=== PATIENT | male | born 1955 | race Caucasian/White ===

== ENCOUNTER 2019-01-24 06:31 | Day surgery (SDC) | payer MEDICARE, BC ==
[2019-01-24] MEDS ORDERED: Bupivacaine 0.5% 50 ML MDV ONE (06:42)
[2019-01-24] MEDS ORDERED: Lidocaine 1% with EPINEPHrine 1:100,000 50 ML MDV ONE (06:42)
[2019-01-24] MEDS ORDERED: Sodium Chloride 0.9% 1,000 ML IV SCH (07:00)
[2019-01-24] MEDS ORDERED: metroNIDAZOLE/Normal Saline 500 MG in Premix Bag 1 BAG IV ONE (07:30)
[2019-01-24] MEDS ORDERED: ceFAZolin 2 GM in Sodium Chloride 0.9% 50 ML IV ONE (07:30)
[2019-01-24] MEDS ORDERED: methylPREDNISolone Sodium Succinate 40 MG/1 ML SDV IVPUSH ONE (07:30)
[2019-01-24] MEDS ORDERED: fentaNYL 250 MCG/5 ML SDV ONE ×2 (07:37→08:22)
[2019-01-24] MEDS ORDERED: Neostigmine Methylsulfate 1 MG/ML 5 ML Syringe ONE (07:38)
[2019-01-24] MEDS ORDERED: Propofol 200 MG/20 ML SDV ONE (07:38)
[2019-01-24] MEDS ORDERED: Glycopyrrolate 0.2 MG/ML 5 ML MDV ONE (07:38)
[2019-01-24] MEDS ORDERED: Rocuronium 50 MG/5 ML Vial ONE (07:38)
[2019-01-24] MEDS ORDERED: Succinylcholine 200 MG/10 ML MDV ONE (07:38)
[2019-01-24] MEDS ORDERED: Dexamethasone 4 MG/ML SDV ONE (07:38)
[2019-01-24] MEDS ORDERED: Ondansetron 4 MG/2 ML SDV ONE (07:38)
[2019-01-24] MEDS ORDERED: Lactated Ringers 1,000 ML ONE (08:26)
[2019-01-24] MEDS ORDERED: Meperidine PF 25 MG/ML Syringe IM PRN (09:01)
[2019-01-24] MEDS ORDERED: oxyCODONE 5 MG Tab PO ONE (10:12)
[2019-01-24 10:31] VITALS: BP 124/83; PULSE 102
--- NOTE | 2019-01-24 11:16 | OR ---
DATE OF PROCEDURE: 01/24/2019 SURGEON: Daron Art MD PROCEDURE: Transversus abdominis plane block, bilaterally. COMPLICATIONS: None. DENTAL SURGEON: None. ANESTHESIA: MAC. INDICATIONS: A 63-year-old male is requiring postoperative pain management. The patient did have a previous concern of scalene blocks, which we discussed, as this was a separate type of block, and he was okay with proceeding after we talked about infection, bleeding, injury to abdominal structures, and other risks not listed here. PROCEDURE IN DETAIL: The patient was placed in supine position. The left side was addressed first. This was injected under direct visualization. The 80% of the solution was injected. The other side was then performed in a same manner, same fashion, same technique in the same sequence. Of note, the needle did not move past the peritoneum into the abdomen at any time. Daron Art MD /[id number]
--- NOTE | 2019-01-24 11:21 | OR ---
DATE OF PROCEDURE: 01/24/2019 SURGEON: Daron Art MD PROCEDURE: Laparoscopic total extraperitoneal hernia repair. COMPLICATIONS: None. RETAIL AREA MANAGER: None. ANESTHESIA: General. RISKS: Risks, benefits, alternatives, and limitations including, but not limited to infection, bleeding, injury to vas deferens, testicular loss, chronic pain, requirement for reoperation, other risks not listed here were explained to the patient, who wished to proceed. PROCEDURE IN DETAIL: The patient was placed in a supine position. An infraumbilical incision was made approximately 1 cm in size. This was carried down with electrocautery to the linea alba. Slightly to the left of this, the fascia was opened and a preperitoneal space was created with a Pean. The balloon was then introduced and subsequently insufflated and held for 1 minute. The balloon was then removed, carbon dioxide was introduced, and the potential space was noted. No abnormal bleeding was noted. The dissection commenced in the lateral to medial approach. The hernia itself was 5 cm to the left of the inguinal canal. This was then dissected and further mobilized. The peritoneum was deflected. This created a landing space, the mesh was introduced. Of note, two 5 mm ports were introduced during this process using direct visualization. The mesh was introduced and placed directly and centered over the defect. This was unfolded. The abdomen was inspected for abnormality, and none was noted. An additional 5 mm port was introduced during this procedure. The air was then removed as the mesh was held into place. The fascia was then closed with #1 Vicryl. Subcutaneous tissue was closed with 3-0 Vicryl. The skin was closed with 4-0 Vicryl. Dermabond was applied. Of note, the patient was also consented for a possible biopsy of left inguinal node due to its size. The it field technician inspected the entire left groin and left abdomen. There were no enlarged lymph nodes at this time and most likely this was a reactive lymph node, as there was no target to biopsy, therefore, no biopsy was performed. Daron Art MD /[id number]
== END 2019-01-24 11:10 | disposition home or self-care (01) ==
LOC: JP.SDS 06:31
PROVIDERS: ATTEND Surgery
DX: K40.90 Unilateral inguinal hernia, without obstruction or gangrene, not specified as recurrent (principal); G89.18 Other acute postprocedural pain; J45.30 Mild persistent asthma, uncomplicated; J44.9 Chronic obstructive pulmonary disease, unspecified; I10 Essential (primary) hypertension; E03.9 Hypothyroidism, unspecified; E11.9 Type 2 diabetes mellitus without complications; M19.019 Primary osteoarthritis, unspecified shoulder; Z79.899 Other long term (current) drug therapy; Z79.84 Long term (current) use of oral hypoglycemic drugs; Z79.52 Long term (current) use of systemic steroids
CPT/HCPCS: 49650; 64488; 76998; A9270; C1781; J0171; J0690; J1100; J2405; J2704; J2710; J2795; J2920; J3010; J3490; J7030; J7050; J7120; J0330

== ENCOUNTER 2019-02-07 07:06 | Day surgery (SDC) | payer MEDICARE, BC ==
[2019-02-07] MEDS ORDERED: Bupivacaine 0.5% 50 ML MDV ONE (07:08)
[2019-02-07] MEDS ORDERED: Lidocaine 1% with EPINEPHrine 1:100,000 50 ML MDV ONE (07:08)
[2019-02-07] MEDS ORDERED: Propofol 200 MG/20 ML SDV ONE ×2 (08:13→08:54)
[2019-02-07] MEDS ORDERED: Midazolam 1 MG/ML 2 ML SDV ONE (08:13)
[2019-02-07] MEDS ORDERED: fentaNYL 100 MCG/2 ML SDV ONE (08:13)
[2019-02-07] MEDS ORDERED: Sodium Chloride 0.9% 1,000 ML IV SCH (08:15)
[2019-02-07 10:06] VITALS: BP 105/70; PULSE 63
--- NOTE | 2019-02-07 12:45 | OR ---
DATE OF PROCEDURE: 02/07/2019 SURGEON: Daron Art MD PROCEDURE: Left groin biopsy, using a vacuum-assisted device, of an enlarged lymph node. FINDINGS: Single lymph node, which has been reactive and changing in size over multiple ultrasounds. RISKS: Risks, benefits, alternatives, and limitations including, but not limited to infection, bleeding, and false-positives and false-negatives were all explained to the patient, who wished to proceed. PROCEDURE IN DETAIL: The patient was placed in supine position. The ultrasound was used to identify this lymph node. The tract was anesthetized with lidocaine. A 15 blade was used to create a defect in the skin. The vacuum-assisted biopsy gun was then introduced and 2 passes were placed through the lymph node. The lymph node was seen to clearly deform with a missing tract in the center with both biopsies. A clip was then placed within the lymph node itself. Direct pressure was held for 10 minutes and Dermabond was applied. Daron Art MD /[id number]
== END 2019-02-07 10:19 | disposition home or self-care (01) ==
LOC: JP.SDS 07:06
PROVIDERS: ATTEND Surgery
DX: R59.0 Localized enlarged lymph nodes (principal); I10 Essential (primary) hypertension; J44.9 Chronic obstructive pulmonary disease, unspecified
CPT/HCPCS: 38531; 76998; 88305; 88341; 88342; J2250; J2704; J3010; J3490; J7030